=== PATIENT | male | born 2005 | race Hispanic/Latino ===

== ENCOUNTER 2024-04-02 11:59 | Emergency (ER) | payer SELFPAY ==
[2024-04-02 12:16] LABS: Bilirubin Negative (Negative); Blood, Urine Negative (Negative); Clarity Hazy (Clear); Glucose, Urine (Dipstick) Negative (Negative); Ketone, Urine Negative (Negative); Leukocyte Negative (Negative); Nitrite Negative (Negative); Protein, Urine (Dipstick) Negative (Neg-Trace); pH, Urine 7.5 (5.0-9.0)
[2024-04-02] MEDS ORDERED: Sterile Water 10 ML ONE (12:17)
[2024-04-02] MEDS ORDERED: Doxycycline 100 MG CAP ONE (12:17)
[2024-04-02] MEDS ORDERED: cefTRIAXone (ROCEPHIN) 500 MG VIAL ONE (12:17)
[2024-04-02 12:23] LABS: Bacteria/HPF Rare-Few HPF (None Seen); CAUTI Indications for Culture Dysuria,urgency,freq; Mucous/LPF 1+ LPF (<2+); RBC/HPF 0-3 HPF (0-3); Squamous Epithelial 0-3 HPF (0-3)
[2024-04-02 12:24] LABS: Urine Culture Reflex Yes Yes
[2024-04-03 01:23] LABS: Chlam.trachomatis by PCR,Urine DETECTED (NotDetected); GC N.gonorrhoeae PCR,UrineVOID Not Detected (NotDetected)
== END 2024-04-02 12:34 | disposition home or self-care (01) ==
LOC: MADERS 11:59
DX: Z20.2 Contact with and (suspected) exposure to infections with a predominantly sexual mode of transmission (principal); F17.290 Nicotine dependence, other tobacco product, uncomplicated
CPT/HCPCS: 81001; 87086; 87491; 87591; 96372; 99283; J0696